=== PATIENT | male | born 1935 | race Caucasian/White ===

== ENCOUNTER 2016-08-04 00:34 | Inpatient (IN) | payer MEDICARE, BC ==
[~2016-08-04] VITALS: Ht 167.6 cm; Wt 76.4 kg
[~2016-08-04 00:34] MED LIST: ARANESP300 MCG/0. SQ; DURAGESIC1 PATCH .7 TD; FERROUS SULFAT325 MG PO; JANUVIA100 MG PO; KLONOPIN1 MG PO; LANTUS INSULIN10 ML SC; LASIX40 MG PO; MELATONIN 3 MG1 TAB PO; NEURONTIN 300300 MG PO; NORCO 5/325 TAB1 TA1 PO; PEPCID20 MG; PEPCID20 MG PO; PLAVIX75 MG PO; PREVACID SOLUTA30 MG PO; SINEMET 25/1001 TAB PO; TRANDATE200 MG; TRANDATE200 MG PO; TRANDATE300 MG; TRICOR145 MG PO; VICODIN PO
[2016-08-04 03:47] VITALS: BP 129/57; BMI 34.7
--- NOTE | 2016-08-04 03:50 | NUR ---
ALERT/ORIENTED X 4. C/O RIGHT LEG FRACTURE PAIN LEVEL 8/10 SCALE. RIGHT LEG DRESSING REMOVED REVEALING COMPOUND FRACTURE WITH TIBIA STICKING THROUGH THE SKIN ABOVE ANKLE. WOUND REWRAPPED BY TRISTIAN ANTON LPN. IV IN RIGHT AC NOTED. FISTULA IN LEFT UPPER ARM WITH STRONG BRUIT AND THRILL. ORIENTED TO ROOM AND CALL LIGHT. HIS AND SON ARE PRESENT IN ROOM.
[2016-08-04] MEDS ORDERED: DURAGESIC1 PATCH .4 TRANSDERM (04:07)
[2016-08-04] MEDS ORDERED: JANUVIA100 MG PO (04:09)
[2016-08-04] MEDS ORDERED: NORMODYNE / TR200 MG PO (04:09)
[2016-08-04] MEDS ORDERED: RENVELA800 MG PO (04:10)
[2016-08-04] MEDS ORDERED: LANTUS SOL100 UNIT/1 SC (04:11)
[2016-08-04] MEDS ORDERED: LYRICA150 MG PO (04:12)
[2016-08-04] MEDS ORDERED: CELEXA20 MG PO (04:13)
[2016-08-04 04:30] VITALS: BP 106/50
[2016-08-04 05:13] LABS: HEMATOCRIT 36.7 % (42.0-54.0); HEMOGLOBIN 11.6 g/dL (13.5-17.5); MCH 31.2 pg (26.0-34.0); MCHC 31.6 g/dL (31.0-37.0); MCV 98.7 fL (80.0-100.0); MEAN PLATELET VOLUME 11.3 fL (7.4-10.4); PLATELET COUNT 265 10x3/uL (130-400); RBC 3.72 10x6/uL (4.20-6.10); RDW 15.8 % (11.5-14.5); WBC 20.6 10x3/uL (4.8-10.8)
[2016-08-04 05:19] LABS: EOSINOPHILS 3 % (0-7); LYMPHOCYTES 18 % (15-50); MONOCYTES 5 % (2-11); NEUTROPHILS 69 % (40-80); PLATELET ESTIMATE NORMAL
[2016-08-04 05:39] LABS: CALCIUM 7.7 mg/dL (8.5-10.1); CARBON DIOXIDE 24.7 mmol/L (21.0-32.0); CREATININE - SERUM 5.7 mg/dL (0.6-1.3); POTASSIUM - SERUM 3.7 mmol/L (3.5-5.1)
--- NOTE | 2016-08-04 06:22 | NUR ---
PT RECIEVED FROM EMS. ALERT ORIENTED CONVERSANT. DENIED PAIN ON ADMISSION. PRESENTED WITH RIGHT FOOT BANDAGED, DRESSINGS SATURATED WITH BLOOD. BANDAGES REMOVED AND WOUND INSPECTED. PT RIGHT FOOT FOUND TO BE ROTATED LATERALY AWAY FROM MIDLINE WITH A PRONOUNCED SAG. OPEN WOUND PRESENT APPROX OVER MEDIAL MALLEOLUS. WHITE TISSUE SHOWING. UNABLE TO PALPATE PULSE, COLD TO TOUCH. INQUIRED IF PT COULD FEEL STIMULUS APPLIED TO FOOT. PT STATED THAT HE COULD BARELY FEEL ANYTHING. ASKED PT TO RAISE LEG DURING BANDAGING PROCCESS. PT COMPLIED AND SHOWED NO SIGNS OF PAIN OR DISCOMFORT. WOUND WAS CLENSED WITH WOUND CLENSER, ABD PAD PLACED OVER WOUND, PAD SECURED WITH COTTON WRAP, OSKAR VELCRO WRAP USED TO SECURE ALL BANDAGES. EXTREMITY ELEVATED ON PILLOWS, ICE PLACED NEXT TO WOUND, NOT ON. PT NON WEIGHT BEARING STATUS.
[2016-08-04 09:00] VITALS: BP 115/51
--- NOTE | 2016-08-04 09:38 | NUR ---
WHEN GOT HERE THIS AM ABOUT 8 AM, RALPH WAS ORIGINAL PT NURSE AND WAS SENT TO [facility]. I ASSUMED CARE OF PT. SAW THAT DR SALINAS HAD BEEN CONSULTED FOR OPEN ANKLE FX AND THAT IN THE ORDER IT SAID "CALL IN THE AM". VY CALLED AT ABOUT 0820. DR SALINAS IS ON HIS WAY.
--- NOTE | 2016-08-04 09:50 | NUR ---
DR SALINAS HERE WANTS PT TO OR NOW. CALLED [place] [facility] HE IS CALLING OR STAFF.
[2016-08-04 10:09] LABS: MAGNESIUM - SERUM 2.1 mg/dL (1.8-2.4); VANCOMYCIN - RANDOM 32.4 ug/mL (10.0-20.0)
--- NOTE | 2016-08-04 10:43 | NUR ---
UNABLE TO COMPLETE PREOP CHECKLIST. SAYS UNAVAILBLE PROCEDURES.? PT TO SURGERY.
--- NOTE | 2016-08-04 11:31 | NUR ---
1100 PATIENT HAS MULTIPLE SCRATCHES AND ULCERS ON LEGS AND ARM, ELIDIAREULALIO
[2016-08-04 12:48] VITALS: BP 109/53
--- NOTE | 2016-08-04 13:07 | NUR ---
MEPELEX BORDER APPLIED TO LEFT HEEL. SIGNED AND DATED. UNABLE TO APPLY TO R HEEL BECAUSE OF LARGE BULKY DRESSING FROM SURGERY.
--- NOTE | 2016-08-04 13:50 | NUR ---
PAGED DR SALINAS ABOUT PT BEING IN PAIN. NOT TIME FOR PT TO HAVE PAIN MEDS.
--- NOTE | 2016-08-04 14:56 | NUR ---
PT VS STILL WNL. PT SITTING UP IN BED WITH FAMILY AT BEDSIDE.
[2016-08-04 17:14] VITALS: BP 128/59
--- NOTE | 2016-08-04 17:32 | NUR ---
PT SITTING UP IN BED WITH FAMILY AT BEDSIDE DENIES NEEDS AT THIS TIME WILL CONTINUE TO MONITOR.
--- NOTE | 2016-08-04 20:03 | NUR ---
PT ASSESSMENT AND BEDSIDE ROUNDING COMPLETED AND PT LAYING IN BED EYES CLOSED APPERS TO BE SLEEPING IN ROOM AT BEDSIDE RIGHT ANKLE DRESSING INTACT AND NO DRAINAGE OBSERVED IVP TO R AC WITH 1/2 NS INFUSING ORDERED AND NO DISTRESS OBSERVED AT THIS TIME. IN ROOM AT BEDSIDE CALL LIGHT IN REACH SRX2 BED LOW AND LOCKED WILL MONITOR
[2016-08-04 21:13] VITALS: BP 131/63
[2016-08-05] VITALS (8 sets, daily range): BP systolic 127–136; BP diastolic 53–58; Ht 167.6 cm; Wt 76.4 kg
[2016-08-05 06:23] LABS: BASOPHILS 0.5 % (0.0-2.0); EOSINOPHILS 2.1 % (0-7); HEMATOCRIT 33.2 % (42.0-54.0); HEMOGLOBIN 10.5 g/dL (13.5-17.5); IMMATURE GRANULOCYTES 1.8 % (0-5); LYMPHOCYTES 11.4 % (15-50); MCH 31.4 pg (26.0-34.0); MCHC 31.6 g/dL (31.0-37.0); MCV 99.4 fL (80.0-100.0); MEAN PLATELET VOLUME 11.2 fL (7.4-10.4); MONOCYTES 6.6 % (2-11); NEUTROPHILS 77.6 % (40-80); PLATELET COUNT 237 10x3/uL (130-400); RBC 3.34 10x6/uL (4.20-6.10); RDW 15.8 % (11.5-14.5); WBC 17.1 10x3/uL (4.8-10.8)
[2016-08-05 06:32] LABS: ANION GAP 20.5 mmol/L (8-16); CALCIUM 7.5 mg/dL (8.5-10.1); CARBON DIOXIDE 23.2 mmol/L (21.0-32.0); CREATININE - SERUM 7.4 mg/dL (0.6-1.3); MAGNESIUM - SERUM 2.1 mg/dL (1.8-2.4); PHOSPHOROUS 9.5 mg/dL (2.5-4.9); POTASSIUM - SERUM 3.7 mmol/L (3.5-5.1)
--- NOTE | 2016-08-05 09:08 | NUR ---
SCD IN USE
--- NOTE | 2016-08-05 12:00 | NUR ---
RESTING IN BED. UNSUCCESSFUL GETTING TO CHAIR ASSISTED BY PHYSICAL THERAPY. FAMILY AT BEDSIDE. CONTINUE PAIN MANAGEMENT. RT ANKLE DRESSING CLEAN DRY INTACT. DENIES SOB. BED LOCKED AND LOW. SCD ON LT LEG. CALL LIGHT IN REACH. TWO SIDERAILS UP.
--- NOTE | 2016-08-05 16:53 | NUR ---
Patient Name: CHAPARRO BURT Admission Status: Elective Accout number: [id number] Admission Date: 08-04-2016 : 1935 Admission Diagnosis: Attending: VERONICA Current LOS: 1 Anticipated DC Date: Planned Disposition: Home Health Service Primary Insurance: MEDICARE A & B PLANNED EXTERNAL PROVIDER: [facility], Discharge Planning Comments: * Is the patient Alert and Oriented? Yes 0 * How many steps to enter\exit or inside your home? RAMP 0 * PCP DR. JIANG IN [place] 0 * Pharmacy [facility] IN [place] 0 * Preadmission Environment Home with Family 0 * ADLs Independent 0 * Equipment Walker Wheelchair 0 * Other Equipment NO MEDICAL EQUIPMENT PROVIDER PREFERENCE 0 * List name and contact numbers for known caregivers / representatives who currently or will assist patient after discharge: IMELDA BURT, SPOUSE, WERNER BURT, SON, 0 * Community resources currently utilized None 0 * Please name any agencies selected above. NONE 0 * Additional services required to return to the preadmission environment? No 0 * Can the patient safely return to the preadmission environment? Yes 0 * Has this patient been hospitalized within the prior 30 days at any hospital? No 0 CM MET WITH PT ALONG WITH PT'S SPOUSE AND SON IN ROOM TO DISCUSS DISCHARGE PLANNING AND NEEDS. PT REPORTS LIVING AT HOME INDEPENDENTLY WITH HIS SPOUSE; PT'S SON WILL BE STAYING WITH THEM TO ASSIST PT AFTER DISCHARGE HOME. PT HAS WALKER AND WHEELCHAIR AT HOME WITH NO MEDICAL EQUIPMENT PROVIDER PREFERENCE. PT HAS NO OUTSIDE SERVICES ASSISTING IN THE HOME. CM DISCUSSED AVAILABILITY OF HOME HEALTH, REHAB SERVICES AND MEDICAL EQUIPMENT. PT DENIES NEED FOR REHAB PLACEMENT. PT REPORTS PLAN TO DISCHARGE HOME AND WANTS HOME HEALTH FOR THERAPY SERVICES BY [facility]. PT REPORTS ATTENDING DIALYSIS ON SCHEDULE AT 0900, SON TRANSPORTS. PT'S SON REPORTS HE WILL CONTACT TRANSPORATION SERVICES IN [place] TO SEE IF THEY CAN GET A LIFT VAN TO PRODUCTION MECHANIC TIN CANS PT TO TRANSPORT TO AND FROM DIALYSIS APPOINTMENTS. PT REPORTS HIS AND SON WILL PICK HIM UP FOR DISCHARGE HOME. IMPORTANT MESSAGE FROM MEDICARE PROVIDED AND EXPLAINED. PT PLANS TO DISCHARGE HOME WITH FAMILY ASSISTANCE AND WANTS HOME HEALTH FOR PHYSICAL THERAPY SERVICES FROM [facility]. CM WILL ARRANGE WITH PHYSICIAN AGREEMENT AND ORDERS. Scrap Wheeler: Yvan Lopez
--- NOTE | 2016-08-05 17:58 | NUR ---
RESTING IN BED. ALERT AND ORIENTED X4. NO CHANGE. CONTINUE PLAN OF CARE AND SAFETY PRECAUTIONS.
--- NOTE | 2016-08-06 00:54 | NUR ---
PT ROUNDS 19:00 - PT LYING IN BED, AWAKE, ALERT, ORIENTED, DENIED ANY ACUTE NEEDS. CONTINUE TO MONITOR CLOSELY. RIGHT LEG WRAPPED, DRESSING INTACT, PT IS AWARE HE CANNOT PLACE ANY WEIGHT ON HIS RIGHT FOOT AT ANY TIME.
--- NOTE | 2016-08-06 05:22 | NUR ---
PT LYING IN BED, AWAKE, ALERT, ORIENTED, SON AT BEDSIDE. PT STATES HE VOMITING AFTER RECEIVING HIS BEDTIME MEDICATIONS, POSSIBLY R/T THE IVP BUPRONEX, BUT FEELS FINE NOW, AND DENIES GREAT PAIN AT THIS TIME. CONTINUE TO MONITOR CLOSELY.
[2016-08-06 05:35] VITALS: BP 107/49
--- NOTE | 2016-08-06 06:03 | NUR ---
PT STATES HE BECOMES NAUSEATED WITH BUPRENEX BUT THERE IS NOTHING ELSE ORDERED FOR PAIN AT THIS TIME. WILL DISCUSS WITH DAY SHIFT NURSE. ZOFRAN GIVEN PRIOR TO BUPRENEX ADMINSTRATION. PT DENIES NAUSEA AT THIS TIME. CONTINUE TO MONITOR CLOSELY.
[2016-08-06 06:32] LABS: BASOPHILS 0.4 % (0.0-2.0); HEMOGLOBIN 9.4 g/dL (13.5-17.5); IMMATURE GRANULOCYTES 1.2 % (0-5); LYMPHOCYTES 10.1 % (15-50); MCH 30.8 pg (26.0-34.0); MCHC 31.3 g/dL (31.0-37.0); MCV 98.4 fL (80.0-100.0); MEAN PLATELET VOLUME 11.1 fL (7.4-10.4); NEUTROPHILS 80.3 % (40-80); PLATELET COUNT 216 10x3/uL (130-400); RBC 3.05 10x6/uL (4.20-6.10); WBC 14.2 10x3/uL (4.8-10.8)
--- NOTE | 2016-08-06 07:00 | NUR ---
RECEIVED REPORT. ASSUMED CARE OF PATIENT. CALL LIGHT WITH IN REACH. PATIENT ALERT/ORIENTED. MALE VISITOR AT BEDSIDE. DENIES NEEDS AT THIS TIME. AT BEDSIDE FOR AM ROUNDS. NO ACUTE DISTRESS.
[2016-08-06 07:02] LABS: ANION GAP 18.4 mmol/L (8-16); CARBON DIOXIDE 23.4 mmol/L (21.0-32.0); MAGNESIUM - SERUM 2.1 mg/dL (1.8-2.4); POTASSIUM - SERUM 3.8 mmol/L (3.5-5.1); VANCOMYCIN - TROUGH 30.3 ug/mL (10.0-20.0)
[2016-08-06 07:04] LABS: PHOSPHOROUS 9.9 mg/dL (2.5-4.9)
[2016-08-06 07:25] VITALS: BP 104/38
[2016-08-06 11:21] VITALS: BP 126/53
--- NOTE | 2016-08-06 11:40 | NUR ---
FSBS 206. 4 UNITS HUMALOG ADMINISTERED VIA SLIDING SCALE AT THIS TIME. NO DISTRESS.
[2016-08-06 12:00] VITALS: BP 126/53
--- NOTE | 2016-08-06 14:22 | NUR ---
MEDICATED FOR PAIN AT THIS TIME. NO DISTRES.
--- NOTE | 2016-08-06 15:14 | NUR ---
Patient Name: CHAPARRO BURT Encounter No: [id number] : 1935 Primary Insurance: MEDICARE A & B Anticipated DC Date: Planned Disposition: Retirement Facility External Planned Provider: [facility], [place], MEDICARE REH BED DCP follow-up note: CM MET WITH PT AND FAMILY IN ROOM. PT HAS DECIDED TO GO TO REHAB AT [facility] IN [place]. FAMILY HAS CONTACTED THE ADMINSTRATOR OF THE FACILITY WITH REQUEST. CHOICE LETTER SIGNED. CM CALLED [facility], [address] [place] [address]; [phone], SPOKE TO GEOVANNI WHO REPORTS THE FACILITY WILL EVALUATE PT FOR REHAB SERVICES. CM FAXED REFERRAL TO [facility] AT [phone]. CM WAITING ADMISSION DETERMINATION FROM [facility] IN [place]. Yvan Lopez, CASE MANAGEMENT
[2016-08-06 15:33] VITALS: BP 119/47
--- NOTE | 2016-08-06 17:11 | NUR ---
FSBS 200. 2 UNITS HUMALOG ADMINISTERED PER SLIDING SCALE.
[2016-08-06 22:28] VITALS: BP 115/55
[2016-08-07 00:59] VITALS: BP 121/58
--- NOTE | 2016-08-07 03:42 | NUR ---
NURSE ROUNDS 19:30 - PT AWAKE, ALERT, ORIENTED, AT BEDSIDE. PT DENIES ANY NEEDS. CALL LIGHT IN REACH, SIDE RAILS X 2, HOB 15 DEGREES, BED LOW. CONTINUE TO MONITOR CLOSELY.
[2016-08-07 05:21] VITALS: BP 129/53
[2016-08-07 06:17] LABS: BASOPHILS 0.4 % (0.0-2.0); HEMATOCRIT 30.8 % (42.0-54.0); HEMOGLOBIN 9.6 g/dL (13.5-17.5); IMMATURE GRANULOCYTES 0.9 % (0-5); MCH 30.8 pg (26.0-34.0); MCHC 31.2 g/dL (31.0-37.0); MCV 98.7 fL (80.0-100.0); MONOCYTES 6.6 % (2-11); NEUTROPHILS 82.1 % (40-80); PLATELET COUNT 220 10x3/uL (130-400); RBC 3.12 10x6/uL (4.20-6.10); RDW 16.1 % (11.5-14.5); WBC 12.9 10x3/uL (4.8-10.8)
[2016-08-07 07:07] LABS: ANION GAP 21.5 mmol/L (8-16); CARBON DIOXIDE 20.9 mmol/L (21.0-32.0); CREATININE - SERUM 10.6 mg/dL (0.6-1.3)
[2016-08-07 07:11] LABS: PHOSPHOROUS 9.4 mg/dL (2.5-4.9); POTASSIUM - SERUM 4.4 mmol/L (3.5-5.1)
[2016-08-07 08:00] VITALS: BP 118/85
--- NOTE | 2016-08-07 10:00 | NUR ---
Lying in bed, awake easily, spouse at bedside, incontinent of stool, cleansed up and positioned in bed. Left arm reserved. Dressing clean dry and intact to right lower leg, toes warm and pink, able to move toes. Verbalized understanding of no weight bearing to that leg. No distress assessed.
[2016-08-07 12:00] VITALS: BP 113/58
--- NOTE | 2016-08-07 12:56 | NUR ---
[facility] - [facility] @ 6:45am. Medical records have been forwarded to the patient's home unit for their records. Per CM patient is scheduled to d/c to [place] tomorrow (08/08/16). EDIN PRL
--- NOTE | 2016-08-07 15:04 | NUR ---
TO DIALYSIS VIA BED.
--- NOTE | 2016-08-07 19:20 | NUR ---
Mr. Kuhn had hemodialysi today via his left upper arm av fistula from 1515 until 1815. Average blood flow was 400 mls/minute. Pt. was hypotensive and lethargic during treatment. Net fluid removed was 1500 mls. Post vital signs were good after awakening. B/P: 131/69, HR: 82, Temp: 98.4 Resps: 20.
--- NOTE | 2016-08-07 19:50 | NUR ---
PT BACK FROM DIALYSIS, AWAKE, ALERT, ORIENTED, SITTING UP IN BED, EATING HIS DINNER TRAY. DENIES ANY NEEDS. SON AT BEDSIDE. CONTINUE TO MONITOR CLOSELY.
[2016-08-07 20:26] VITALS: BP 136/65
--- NOTE | 2016-08-07 23:15 | NUR ---
PT'S PAIN IN RIGHT LEG IS NOT WELL CONTROLLED WITH NORCO 5/325. I SPOKE WITH KALEY MACARIO HAND WEAVER FOR RENAL WHO AUTHORIZED TO RESTART PTS BUPRENEX 0.1MG IVP Q 4 HOURS PRN. CONTINUE TO MONITOR CLOSELY.
[2016-08-08 00:38] VITALS: BP 125/49
[2016-08-08 04:40] VITALS: BP 104/55
[2016-08-08 05:48] LABS: BASOPHILS 0.3 % (0.0-2.0); EOSINOPHILS 2.3 % (0-7); HEMATOCRIT 29.1 % (42.0-54.0); HEMOGLOBIN 9.1 g/dL (13.5-17.5); IMMATURE GRANULOCYTES 0.8 % (0-5); LYMPHOCYTES 10.3 % (15-50); MCH 30.8 pg (26.0-34.0); MCHC 31.3 g/dL (31.0-37.0); MCV 98.6 fL (80.0-100.0); NEUTROPHILS 77.3 % (40-80); PLATELET COUNT 210 10x3/uL (130-400); RBC 2.95 10x6/uL (4.20-6.10); RDW 15.8 % (11.5-14.5); WBC 11.9 10x3/uL (4.8-10.8)
[2016-08-08 06:26] LABS: CALCIUM 7.6 mg/dL (8.5-10.1); VANCOMYCIN - RANDOM 27.2 ug/mL (10.0-20.0)
[2016-08-08 06:34] LABS: ANION GAP 16.2 mmol/L (8-16); CARBON DIOXIDE 27.2 mmol/L (21.0-32.0); CREATININE - SERUM 7.2 mg/dL (0.6-1.3); PHOSPHOROUS 6.2 mg/dL (2.5-4.9); POTASSIUM - SERUM 3.4 mmol/L (3.5-5.1)
[2016-08-08 08:00] VITALS: BP 122/53
--- NOTE | 2016-08-08 08:04 | NUR ---
AM ROUNING- PT LAYING IN BED ON BACK WITH EYES OPEN WATCHING TV. SON AT BEDSIDE. DENIES ANY NEED AT THIS PRESENT TIME. PT IS ALERT AND ORIENTED. FSBS ACHS. PT IS RESERVE LEFT ARM FOR AVF. PT NORMAL DIALYSIS SCHEDULE IS , , AND SAT. PT DID DIALYZE YESTERDAY VIA TOLL PATROLMAN NURSE. PT HAS DRESSING TO RIGHT LEG CLEAN, DRY, AND INTACT FOR COMPOUND ANKLE FRACTURE. IV SEEN TO RIGHT AC SALINE LOCKED AND PATENT. ON 2L OF VIA MN. NO MONITOR. SCD SEEN TO LEFT LEG. PT IS ON ELIQUIS. WILL CONTINUE TO MONITOR.
--- NOTE | 2016-08-08 09:23 | OP ---
PATIENT NAME: CHAPARRO BURT MEDICAL RECORD: [id number] :[birth year] LOCATION:D.M2 D.2103 ADMISSION DATE:08/04/16 SURGEON: MARIE SALINAS MD DATE OF OPERATION: 08/04/2016 PREOPERATIVE DIAGNOSIS: Grade II open ankle fracture. POSTOPERATIVE DIAGNOSIS: Grade II open ankle fracture. PROCEDURES: 1. Excisional debridement of open wound to include skin, subcutaneous tissue, portions of fat, fascia, muscle, tendon and bone. 2. Open reduction internal fixation of open ankle fracture. 3. Deltoid ligament reconstruction of the ankle. SURGEON: Marie Salinas MD ANESTHESIA: General. INTRAOPERATIVE COMPLICATIONS: None. SUMMARY OF PATHOLOGIC FINDINGS: The patient had an open ankle fracture as described above. Based on history that was given to me, this patient sustained a fall on the 2015 and had an open ankle fracture at that time. The patient was then transferred from the [facility] to [place] and evidently arrives the morning of 08/04/2016. Orthopedic surgery was not called for consultation until 08:11 a.m. He was then taken urgently to the OR for operative fixation. OPERATIVE SUMMARY IN DETAIL: After obtaining the appropriate preoperative orthopedic surgery consents as well as anesthetic consultation, evaluation and clearance, the patient was brought to the operating room and placed in the operating table in supine position. After adequate general endotracheal anesthesia was administered, tourniquet was placed about the proximal aspect of the right lower extremity. Right lower extremity was then prepped and draped in a routine sterile fashion. Leg was elevated, tourniquet was inflated to 350 mmHg. Attention was first turned to the open wound. Serial and sequential pulsatile lavage debridement was carried out along with a scalpel debridement of loose bone fragments. The patient had subluxed the posterior tibial tendon into the joint. This was gently removed and all bone fragments along with nonviable appearing skin, subcutaneous tissue, fat, fascia as well as bone removed. Without closing this wound, attention was turned to the displaced lateral malleolus fracture. Incision was made along the lateral malleolus. It was carried down to the level of the fracture, which was dissected and upon identification and evaluation of the fracture, it became obvious that this fracture was old with a new component. There was fracture healing components along with a new fracture. This was all dissected down. Curettage was used extensively to remove interposed soft tissue. At this point, a large clamp was then used to reduce the Thomas C type fracture and plate was then applied. Serial and sequential drill and fill was utilized along with 3 syndesmosis screws which closed the medial clear space down to approximately 2 mm from completely dislocated laterally. With this wound still open, the medial clear space was evaluated again. The deltoid soft tissue along with the posterior tibial tendon was removed and at this point, the medial deltoid ligament was reconstructed the joint capsule along with the distal medial deltoid ligament OPERATIVE REPORT [id number] CHAPARRO BURT was reapproximated back to the medial malleolus with its torn deltoid ligament. This further reduced the medial clear space, albeit not back to anatomic as far as this patient is old with acute fracture would allow. Wound was again irrigated and then closed. The deltoid ligament was reconstructed with a combination of #1 Vicryl and 2-0 Vicryl. The skin was then closed with #2 Ethibond somewhat loosely given the fact that this patient's ankle had been opened now for almost 24 hours. The medial based incision was then irrigated and closed with #1 Vicryl followed by skin meir. Sterile dressings were applied. The tourniquet was deflated and a posterior L&U splint was applied with varus vector on the posterior splint. Having completed this, the patient was awakened, extubated, and taken to recovery room in stable condition. All final needle and sponge counts were correct. TRANSINT:[id number] Voice Confirmation ID: [id number] DOCUMENT ID: [id number] RITA SINGLETARY, MARIE MACHUCA at 0923 CC: [id number] DICTATION DATE: 08/04/16 1216 RESEARCH PROGRAM COORDINATOR: 08/04/16 1409 ADM IN [facility] [address] [place] [address]
--- NOTE | 2016-08-08 10:34 | NUR ---
PHYSICAL THERAPY GOT PT UP TO CHAIR.
[2016-08-08 12:00] VITALS: BP 125/54
--- NOTE | 2016-08-08 15:46 | NUR ---
Patient Name: CHAPARRO BURT Encounter No: [id number] : 1935 Primary Insurance: MEDICARE A & B Anticipated DC Date: 08-09-2016 Planned Disposition: Nursing Home Facility External Planned Provider: [facility], MEDICARE REHAB BED DCP follow-up note: CM RECEIVED CALL FROM GEOVANNI OF [facility], [address] [place] [address]; [phone], WHO REPORTS [facility] WILL ACCEPT FOR REHAB SERVICES. [facility] TO ARRANGE VAN TRANSPORT FOR TOMORROW. CM SPOKE TO PT AND FAMILY IN ROOM, ALL STILL IN AGREEMENT WITH DISCHARGE TO [facility]. IMPORTANT MESSAGE FROM MEDICARE PROVIDED AND EXPLAINED. FOR DISCHARGE, NURSE REPORT TO BE CALLED TO [facility], ; CM TO FAX DC INFORMATION TO [facility] AT [phone]. [facility] TO ARRANGE VAN TRANSPORT. Yvan Lopez, CASE MANAGEMENT
[2016-08-08 16:00] VITALS: BP 132/49
--- NOTE | 2016-08-08 16:08 | NUR ---
Patient Name: CHAPARRO BURT Encounter No: [id number] : 1935 Primary Insurance: MEDICARE A & B Anticipated DC Date: 08-09-2016 Planned Disposition: [facility] Facility External Planned Provider: [facility], MEDICARE REHAB BED DCP follow-up note: CM RECEIVED CALL FROM GEOVANNI OF [facility], [address] [place] [address]; [phone], WHO REPORTS [facility] WILL GRAVEL TRUCK DRIVER PT BETWEEN 1100AM AND NOON TOMORROW. PT AND FAMILY NOTIFIED, BEDSIDE NURSE NOTIFIED, STUMPER FELLER NOTIFIED. FOR DISCHARGE, NURSE REPORT TO BE CALLED TO [facility], ; CM TO FAX DC INFORMATION TO [facility] AT [phone]. [facility] TO PICK PT UP 08-09-16, VAN TRANSPORT, BETWEEN 1130 AND NOON. Yvan Lopez, CASE MANAGEMENT
--- NOTE | 2016-08-08 17:06 | NUR ---
SPLINT REMOVED PER DR. SALINAS'S ORDERS. WEBRIL AND ADAPTIC DRESSING REMOVED ALSO TO INCISION. OUTER LATERAL ZAHRA CLEAN AND DRY . SMALL AMOUNT OF SEROUS DRAINAGE. ADAPTIC X2 APPLIED. INNER LATERAL SUTURES CLEAN AND DRY WITH GRANULOUS TISSUE. ADAPTIC X1 APPLIED. SKIN IS PINK AND SCALY. FOOT IS WARM. CAPILLARY REFILL < 3 SECS. MICROPORE TAPE APPLIED. PATIENT MATTHEW WELL. BOOT APPLIED.
--- NOTE | 2016-08-08 18:22 | NUR ---
PT SITTING UP IN BED WITH EYES CLOSED. FAMILY MEMBERS AT BEDSIDE. DENIES ANY NEED AT THIS TIME. WILL CONTINUE TO MONITOR.
[2016-08-08 20:34] VITALS: BP 115/58
[2016-08-09] VITALS: BP 122/49
[2016-08-09 05:17] LABS: BASOPHILS 0.6 % (0.0-2.0); EOSINOPHILS 2.9 % (0-7); IMMATURE GRANULOCYTES 0.7 % (0-5); LYMPHOCYTES 11.4 % (15-50); MCH 31.4 pg (26.0-34.0); MCHC 32.1 g/dL (31.0-37.0); MCV 97.6 fL (80.0-100.0); MEAN PLATELET VOLUME 10.8 fL (7.4-10.4); MONOCYTES 10.4 % (2-11); PLATELET COUNT 231 10x3/uL (130-400); RBC 2.87 10x6/uL (4.20-6.10); RDW 15.8 % (11.5-14.5); WBC 10.9 10x3/uL (4.8-10.8)
--- NOTE | 2016-08-09 05:29 | NUR ---
CALL LIGHT IN REACH. WILL CONTINUE WITH PLAN OF CARE.
[2016-08-09 05:41] LABS: ANION GAP 17.3 mmol/L (8-16); CALCIUM 7.5 mg/dL (8.5-10.1); CARBON DIOXIDE 26.2 mmol/L (21.0-32.0); CREATININE - SERUM 8.6 mg/dL (0.6-1.3); PHOSPHOROUS 6.9 mg/dL (2.5-4.9); POTASSIUM - SERUM 3.5 mmol/L (3.5-5.1)
--- NOTE | 2016-08-09 06:28 | NUR ---
Nutrition follow-up: Diet: Renal PO intake 75-100% of meals labs reviewed Wt: 214# +BM PO intake is good at this time. RDN following.
--- NOTE | 2016-08-09 07:34 | NUR ---
AM ROUNDING- PT SITTING UP IN BED WITH EYES CLOSED RESTING. FAMILY MEMBERS AT BEDSIDE. PT IS CURRENTLY AWAITING TO BE D/C TO REHAB FACILITY. LEFT RESERVE ARM FOR AVF, + BRUIT, + THRILL. IV SEEN TO RIGHT AC, SALINE LOCKED AND PATENT. ON VIA NC. WALKING BOOT SEEN TO RIGHT LEG. SCD SEEN TO LEFT LEG. NO MONITOR. NO CURRENT NEED AT THIS TIME. WILL CONTINUE TO MONITOR.
--- NOTE | 2016-08-09 08:47 | NUR ---
Patient Name: CHAPARRO BURT Encounter No: [id number] : 1935 Primary Insurance: MEDICARE A & B Anticipated DC Date: 08-09-2016 Planned Disposition: Senior Living Facility External Planned Provider: [facility], MEDICARE REHAB BED DCP follow-up note: CM CALLED AND SPOKE TO MEDICATION SPECIALIST, MR. HINOJOSA, [facility], [address] [place] [address]; [phone], WHO REPORTS THAT DUE TO ROAD CONDITIONS THEY ARE UNABLE TO BIAS BINDING CUTTER PT TODAY OR TOMORROW; [facility] WILL BIAS BINDING CUTTER PT 08-11-16. PT NOTIFIED, SHOVEL HANDLE ASSEMBLER NOTIFIED. FOR DISCHARGE 08-11-16, NURSE REPORT TO BE CALLED TO [facility], ; CM TO FAX DC INFORMATION TO [facility] AT [phone]. [facility] TO PICK PT UP 08-11-16, VAN TRANSPORT. Yvan Lopez, CASE MANAGEMENT
[2016-08-09 09:01] VITALS: BP 150/673
[2016-08-09] MEDS ORDERED: ELIQUIS2.5 MG PO (11:42)
[2016-08-09] MEDS ORDERED: MIDODRINE HCL5 MG PO (11:43)
[2016-08-09] MEDS ORDERED: HYDROCODON-ACE1 EAC7 PO (11:44)
[2016-08-09] MEDS ORDERED: PROTONIX40 MG PO (11:44)
[2016-08-09] MEDS ORDERED: NOVOLIN N100 U/ML SQ (11:45)
--- NOTE | 2016-08-09 12:30 | NUR ---
Patient Name: CHAPARRO BURT Encounter No: [id number] : 1935 Primary Insurance: MEDICARE A & B Anticipated DC Date: 08-09-2016 Planned Disposition: Custodial Facility External Planned Provider: [facility], MEDICARE REHAB BED DCP follow-up note: CM SPOKE TO CM SHINGLE INSPECTOR TRACY WHO ASKED CM TO CHECK WITH AMBULANCE TO TRANSPORT PT TO ALF. CM CALLED [facility], SPOKE TO YVAN WHO REPORTED THEY CAN TRANSPORT PT. CM SPOKE TO GEOVANNI AT [facility] WHO REPORTED THAT THEY CAN ACCEPT IF AMBUANCE CAN TRANSPORT AND IT WOULD BE FRIDAY IF THEY HAVE TO TRANSPORT. FAMILY NOTIFIED AND WILLING FOR DISCHARGE IF AMBULANCE CAN TRANSPORT. CM RECEIVED CALL FROM [facility] [employer], MR. HINOJOSA, [facility], [address] [place] [address], [place], [place]; [phone], WHO REPORTS THAT DUE TO ROAD CONDITIONS THEY ARE UNABLE TO LOW EMISSION AUTOMOBILE DESIGNER PT UNTIL FRIDAY AND WILL NOT ACCEPT BEFORE THEN THE ROADS ARE UNSAFE AND THEY WILL NOT BE ABLE TO SAFELY TRANSPORT PT TO DIALYSIS UNTIL AFTER FRIDAY; [facility] WILL LOW EMISSION AUTOMOBILE DESIGNER PT 08-11-16. PT'S FAMILY NOTIFIED, PHOTO RETOUCHER NOTIFIED. CM CANCELLED [facility] TRANSPORT. FOR DISCHARGE 08-11-16, NURSE REPORT TO BE CALLED TO [facility], ; CM TO FAX DC INFORMATION TO [facility] AT [phone]. [facility] TO PICK PT UP 08-11-16, [facility] TRANSPORT. Yvan Lopez, CASE MANAGEMENT
--- NOTE | 2016-08-09 14:37 | NUR ---
HEMODIALYSIS COMPLETE, NET FLUID REMOVAL OF 3 LITERS, TOLERATED WELL. BLOOD RETURNED, NEEDLES PULLED, HEMOSTASIS WAS ACHEIVED. PATIENT TAKEN BACK TO ROOM VIA BED. REPORT GIVEN TO FLOOR NURSE.
--- NOTE | 2016-08-09 15:02 | NUR ---
PT BACK FROM DIALYSIS VIA BED.
[2016-08-09 16:43] VITALS: BP 140/63
--- NOTE | 2016-08-09 17:21 | NUR ---
I WAS GIVING PTS PRN ORDER OF ZOFRAN, PTS IV WOULD NOT FLUSH. IV REMOVED WITH CATH TIP INTACT. PAGED [facility] TO SEE IF I CAN GET ORDER FOR SUBLINGUAL ZOFRAN FOR PT UNTIL I CAN RESITE PTS IV. AWAITING CALLBACK.
--- NOTE | 2016-08-09 17:30 | NUR ---
RECEIVED CALL BACK FROM [facility]. NEW ORDERS RECEIVED.
--- NOTE | 2016-08-09 18:42 | NUR ---
PT SITTING UP IN BED WITH EYES CLOSED SLEEPING. FAMILY MEMBERS AT BEDSIDE. DENIES ANY NEED AT THIS TIME. WILL CONTINUE TO MONITOR.
[2016-08-09 21:00] VITALS: BP 107/56
--- NOTE | 2016-08-09 21:00 | NUR ---
RESTING IN BED WATCHING TV. ALERT ORIENTED CONVERSANT. FAMILY AT BEDSIDE. DENIES NEEDS. NO ACUTE DISTRESS NOTED
[2016-08-10 00:42] VITALS: BP 122/41
--- NOTE | 2016-08-10 04:47 | NUR ---
INFORMED THAT PT WAS NOT RESPONDING TO VERBAL STIMULI. ENTERED ROOM TO FIND NURSING STAFF PRESENT. PT HAD VOMITED. SITTING UP IN BED, STARING RANDOMLY. FOCUSED BREIFLY WHEN PROMPTED. NG TUBE PLACEMENT ATTEMPTED, PT BECAME ALERT AND ATTEMPTED TO PREVENT NGT PLACEMENT. FAMILY THEN STATED THAT PT HAS HISTORY OF SIMILAR REACTIONS TO NARCOTICS. PREVIOUS NORCO GIVEN WITH 2100 MED PASS. NARCAN ADMINISTERED. PT BECAME MORE ALERT, NOW ABLE TO FOLLOW COMANDS AND ANSWER QUESTIONS. PROVIDED FULL NAME AND D.O.B WHEN QUESTIONED.
--- NOTE | 2016-08-10 07:00 | NUR ---
RECEIVED REPORT. ASSUMED CARE OF PATIENT. FAMILY AT BEDSIDE. CALL LIGHT WITHIN REACH. RESTING WITH EYES CLOSED, EASILY AROUSED. NO ACUTE DISTRESS. BOOT TO RIGHT LEG.
[2016-08-10 07:13] LABS: BASOPHILS 0.6 % (0.0-2.0); EOSINOPHILS 1.6 % (0-7); HEMOGLOBIN 10.7 g/dL (13.5-17.5); IMMATURE GRANULOCYTES 1.5 % (0-5); LYMPHOCYTES 10.7 % (15-50); MCH 31.5 pg (26.0-34.0); MCHC 31.8 g/dL (31.0-37.0); MCV 99.1 fL (80.0-100.0); MEAN PLATELET VOLUME 11.1 fL (7.4-10.4); MONOCYTES 8.1 % (2-11); NEUTROPHILS 77.5 % (40-80); PLATELET COUNT 274 10x3/uL (130-400); RDW 15.9 % (11.5-14.5)
[2016-08-10 07:18] VITALS: BP 144/57
[2016-08-10 07:26] VITALS: BP 142/57
[2016-08-10 07:47] LABS: CALC OSMOLALITY 284 mosm/kg (275-300); CALCIUM 8.3 mg/dL (8.5-10.1); CARBON DIOXIDE 27.7 mmol/L (21.0-32.0); CHLORIDE - SERUM 95 mmol/L (98-107); CREATINE KINASE 62 UL (21-232); CREATININE - SERUM 6.4 mg/dL (0.6-1.3); GLUCOSE 249 mg/dL (74-106); POTASSIUM - SERUM 4.3 mmol/L (3.5-5.1); SODIUM 136 mmol/L (136-145); TROPONIN-I < 0.017 ng/mL (0.000-0.060); UREA NITROGEN 27 mg/dL (7-18); eGFR NON AFRICAN AMERICAN 9 mL/min (90-120)
[2016-08-10 07:49] LABS: HEMATOCRIT 33.7 % (42.0-54.0)
--- NOTE | 2016-08-10 07:56 | NUR ---
FOLLOW UP ON LAB WORK. CARDIAC ENZYMES WNL.
[2016-08-10 11:30] VITALS: BP 116/52
--- NOTE | 2016-08-10 11:45 | NUR ---
FSBS 246. 4 UNITS HUMALOG ADMINISTERED AT THIS TIME PER SLIDING SCALE. TYLENOL ADMINISTERED FOR LEG PAIN AT THIS TIME.
--- NOTE | 2016-08-10 13:50 | NUR ---
FSBS 289. 6 UNITS HUMALOG AND 20 UNITS NPH ADMINISTERED ORDERED AT THIS TIME. NO DISTRESS. ALERT/AWAKE, CONSUMING PM MEAL. SON AT BEDSIDE.
--- NOTE | 2016-08-10 14:50 | NUR ---
DRESSING CHANGE PROVIDED TO RIGHT LOWER EXTREMITY AT THIS TIME PER ORDERS. TOLERATED DRESSING CHANGE WELL. NO DISTRESS.
[2016-08-10 15:21] VITALS: BP 136/51
--- NOTE | 2016-08-10 20:22 | NUR ---
PT AGITATED. CONPLAINING OF NUROPATHY PAIN IN LEGS. PT UNABLE TO HAVE NARCOTIC PAIN RELEIVERS DUE TO EARLY AM RAPID REQUIRING NARCAN. PT PROVIDED TYLENOL 1000MG. CURRENT ADMINISTRATION TOTALS 3000MG SINCE APPROX 11AM. PT INFORMED 24HOUR LIMIT 4000MG. PT SITTING IN BEDSIDE CHAIR HITTING RIGHT LEG (ORIF POSTOP) WITH LEFT LEG REPEATEDLY. PT INFORMED THAT HE NEEDS TO STOP BEFORE HE DAMAGES OP SITE.
[2016-08-10 20:30] VITALS: BP 132/54
--- NOTE | 2016-08-10 23:59 | NUR ---
PT LAYING IN BED NO DISTRESS OBSERVED CALL LIGHT IN REACH SRX2 BED LOW AND LOCKED WILL MONITOR
[2016-08-11 00:10] VITALS: BP 129/56
--- NOTE | 2016-08-11 00:36 | NUR ---
PT NOW KICKING POST OP LEG ON BED. PT WARNED AGAIN THAT IF HE DOES NOT STOP HE IS LIKELY TO DO DAMAGE TO HIS ANKLE. PT REFUSED TO STOP KICKING HIS LEG STATING THAT HE COULNT UNTIL HE GOT "A LITTLE SOMETHING".
--- NOTE | 2016-08-11 03:08 | NUR ---
PT LYING IN BED. OPERATIVE LEG HANGING OFF OF SIDE OF BED, BOUNCING LEG IN THE AIR. PT INFORMED AGAIN THAT HE NEEDED TO STOP BEFORE HE DAMAGED HIS ANKLE. PT STATED NO AND CONTINUED.
[2016-08-11 04:20] VITALS: BP 165/65
--- NOTE | 2016-08-11 07:00 | NUR ---
RECEIVED REPORT. ASSUMED CARE OF PATIENT. CALL LIGHT WITHIN REACH. FAMILY AT BEDSIDE. PATIENT ANXIOUS TO LEAVE THIS AM. ALERT/ORIENTED. RESP EVEN AND UNLABORED. NO DISTRESS.
[2016-08-11 07:35] VITALS: BP 146/68
[2016-08-11 07:58] LABS: BASOPHILS 0.6 % (0.0-2.0); EOSINOPHILS 2.3 % (0-7); HEMATOCRIT 33.2 % (42.0-54.0); HEMOGLOBIN 10.5 g/dL (13.5-17.5); IMMATURE GRANULOCYTES 1.4 % (0-5); LYMPHOCYTES 13.7 % (15-50); MCH 30.7 pg (26.0-34.0); MCHC 31.6 g/dL (31.0-37.0); MCV 97.1 fL (80.0-100.0); MEAN PLATELET VOLUME 10.5 fL (7.4-10.4); MONOCYTES 9.6 % (2-11); NEUTROPHILS 72.4 % (40-80); PLATELET COUNT 307 10x3/uL (130-400); RBC 3.42 10x6/uL (4.20-6.10); RDW 15.6 % (11.5-14.5); WBC 14.1 10x3/uL (4.8-10.8)
--- NOTE | 2016-08-11 08:08 | NUR ---
MEDICATED FOR PAIN AT THIS TIME. NO DISTRESS. PATIENT CONTINUES TO EXPERIENCE PAIN TO RIGHT LOWER LEG.
[2016-08-11 08:13] LABS: ANION GAP 21.3 mmol/L (8-16); CALCIUM 8.1 mg/dL (8.5-10.1); POTASSIUM - SERUM 4.3 mmol/L (3.5-5.1); VANCOMYCIN - RANDOM 20.6 ug/mL (10.0-20.0)
[2016-08-11 08:15] LABS: CREATININE - SERUM 8.7 mg/dL (0.6-1.3)
[2016-08-11] MEDS ORDERED: LYRICA150 MG PO (08:26)
--- NOTE | 2016-08-11 08:47 | NUR ---
22 GAUGE IV REMOVED FROM RIGHT WRIST. CATHETER TIP INTACT. PRESSURE HELD TO STOP BLEEDING PT ON ELIQUIS. NO BLEEDING. 2X2 GAUZE APPLIED AND SECURED WITH TAPE. DISCHARGE INSTRUCTIONS GIVEN TO SON AND PATIENT. VERBALIZED UNDERSTANDING OF ALL INSTRUCTIONS GIVEN.
--- NOTE | 2016-08-11 08:54 | NUR ---
REPORT CALLED TO TY PEREZ AT [phone].
--- NOTE | 2016-08-11 09:48 | NUR ---
PATIENT LEFT UNIT VIA WHEELCHAIR WITH FAMILY AND TOWER CRANE OPERATOR FROM [facility] FROM [place]. NO DISTRESS UPON LEAVING UNIT. PATIENT FAMILY TOOK ALL PATIENTS PERSONAL BELONGINGS FROM ROOM UPON DISCHARGE. THANKED THIS CONTROL CLERK AUDITING FOR CARES RECEIVED.
--- NOTE | 2016-08-12 05:44 | DS ---
PATIENT:CHAPARRO KUHN :39 MEDICAL RECORD: [id number] DISCHARGE SUMMARY ADMISSION DATE: 08/04/16 DISCHARGE DATE: 08/11/16 HISTORY OF PRESENT ILLNESS: Mr. Kuhn is a 81-year-old white male with end-stage renal disease, dialyzing 3 times weekly in [place], has been stable with no hospitalizations. Fell and injured his ankle and was admitted to the [facility], where he had continued hemorrhage and infection related to the ankle and upon weightbearing at the [facility] they developed worsening of the wound and the fracture and transferred here to [facility]. HOSPITAL COURSE: The patient was seen by Dr. Lee and he had a compound fracture of his ankle, was taken to surgery where he had internal fixation and screws placed by Dr. Lee. Postoperatively, he did surprisingly well. Vancomycin levels were elevated on transfer from [place] and he did not require further vancomycin in the hospital and his last level here was 27 and we will follow this as an outpatient and dose intermittently. During this time, he underwent acute dialysis without difficulty. Blood sugars were elevated and insulin was advanced, but otherwise he had an uneventful course. DISCHARGE DIAGNOSES: 1. Fracture of right ankle requiring open reduction and internal fixation. 2. End-stage renal disease. 3. Diabetes mellitus. 4. Hypotension, on chronic midodrine therapy. 5. Erythropoietin dependent anemia. PLAN: The patient will be discharged to the [facility] today. He will be in [place] dialysis tomorrow. We will see him on a weekly basis. We will follow his vancomycin levels. He will be dosed intermittently. He is to continue his renal diabetic diet. DISCHARGE MEDICATIONS: Midodrine 5 mg t.i.d., NPH insulin 20 b.i.d., hydrocodone/acetaminophen 5/325 one q. 6 hours p.r.n. He will be on Eliquis 2.5 mg b.i.d., Plavix 75 daily. He will be on Sinemet 25/100 t.i.d., melatonin 3 mg at bedtime, Protonix 40 mg daily, and Renagel ____ t.i.d. TRANSINT:[id number] Voice Confirmation ID: [id number] DOCUMENT ID: [id number] RAQUEL ANDUJAR MD at 0544 CC: [id number] DICTATION DATE: 08/09/16705 PROVIDER NETWORK ANALYST: 08/09/16 0729 DIS IN 08/11/16 [facility] [address] [id number]
== END 2016-08-11 09:55 | DRG 492 ==
LOC: D.M2 00:34
PROVIDERS: Internal Medicine; Internal Medicine Nephrology; Orthopaedic Surgery; ADMIT Internal Medicine Nephrology
PROC: 0QSJ04Z Reposition Right Fibula with Internal Fixation Device, Open Approach (ICD-10-PCS; principal; 2016-08-04 10:45)
PROC: 0LQS0ZZ Repair Right Ankle Tendon, Open Approach (ICD-10-PCS; 2016-08-04 10:45)
DX: S82.891B Other fracture of right lower leg, initial encounter for open fracture type I or II (principal); N18.6 End stage renal disease; I12.0 Hypertensive chronic kidney disease with stage 5 chronic kidney disease or end stage renal disease; W19.XXXA Unspecified fall, initial encounter; E11.22 Type 2 diabetes mellitus with diabetic chronic kidney disease; Z99.2 Dependence on renal dialysis; E11.40 Type 2 diabetes mellitus with diabetic neuropathy, unspecified; E11.319 Type 2 diabetes mellitus with unspecified diabetic retinopathy without macular edema; E83.39 Other disorders of phosphorus metabolism; D63.8 Anemia in other chronic diseases classified elsewhere

== ENCOUNTER → 2016-11-11 19:00 | Outpatient (CLI) | payer MEDICARE, BC ==
[~2016-11-11 19:00] MED LIST changes: +CELEXA20 MG PO; +CLEOCIN HCL150 MG PO; +DURAGESIC1 PATCH .4 TRANSDERM; +ELIQUIS2.5 MG PO; +HUMALOG 30100 UNITS/ SC; +HYDROCODON-ACE1 EAC7 PO; +KLONOPIN0.5 MG PO; +LANTUS SOL100 UNIT/1 SC; +LYRICA150 MG PO; +MIDODRINE HCL5 MG PO; +NEUPRO1 EACH TOPICAL; +NORMODYNE / TR200 MG PO; +NOVOLIN N100 U/ML SQ; +PROTONIX40 MG PO; +RENVELA800 MG PO; +REQUIP0.5 MG PO
== END | disposition home or self-care (01) ==
LOC: D.LABREF 19:00
DX: S82.891A Other fracture of right lower leg, initial encounter for closed fracture (principal)

== ENCOUNTER 2016-11-14 10:03 | Day surgery (SDC) | payer MEDICARE, BC ==
[~2016-11-14] VITALS: Ht 167.6 cm; Wt 95.3 kg
--- NOTE | ~2016-11-14 | OP ---
PATIENT NAME: CHAPARRO BURT MEDICAL RECORD: [id number] :37 LOCATION:D.OPS ADMISSION DATE: SURGEON: MARIE SALINAS MD DATE OF OPERATION: 11/14/2016 Orthopedic Surgery Operative Note PREOPERATIVE DIAGNOSIS: Open wound on the medial aspect of the right ankle, status post open ankle fracture. POSTOPERATIVE DIAGNOSIS: Open wound on the medial aspect of the right ankle, status post open ankle fracture. PROCEDURES: 1. Excisional debridement to include skin, subcutaneous tissue, portions of fat, fascia and muscle. 2. Application of Amniox umbilical cord graft. SURGEON: Marie Salinas MD ANESTHESIA: General. INTRAOPERATIVE COMPLICATIONS: None. SUMMARY OF PATHOLOGIC FINDINGS: The patient's wound looked much better than anticipated; however, it did require at one point scraping down to bone. OPERATIVE SUMMARY IN DETAIL: After obtaining the appropriate preoperative orthopedic surgery consent as well as anesthetic consultation, evaluation and clearance, the patient was brought to the operating room and placed on the operating table in supine position. After general laryngeal mask was administered, the patient's right lower extremity was prepped and draped in a routine sterile fashion. At this point, a combination of scalpel, curettage as well as rongeur were utilized to debride skin and subcutaneous tissue. At one very small area, the bone was scraped back to a bleeding surface with good bleeding tissues, very small undermining was done around the edges of the wound and then an Amniox 4 x 3 graft was cut to measure and sewn in underneath flaps using 3-0 Monocryl. Having completed this, nonstick sterile dressings were applied and a posterior splint was applied. The patient was awakened and taken to the recovery room in stable condition. All final needle and sponge counts were correct. TRANSINT:[id number] Voice Confirmation ID: [id number] DOCUMENT ID: [id number] MARIE SALINAS MD CC: [id number] DICTATION DATE: 11/25/161927 ROUNDING MACHINE TENDER: 11/26/16224 [facility] 11/14/[address] [place] [place] [id number] [place] [id number]
[~2016-11-14 10:03] MED LIST changes: -CLEOCIN HCL150 MG PO; -HUMALOG 30100 UNITS/ SC; -KLONOPIN0.5 MG PO; -NEUPRO1 EACH TOPICAL; -REQUIP0.5 MG PO
[2016-11-14 14:23] LABS: BASOPHILS 0.9 % (0.0-2.0); EOSINOPHILS 4.1 % (0-7); HEMATOCRIT 34.3 % (42.0-54.0); HEMOGLOBIN 10.9 g/dL (13.5-17.5); IMMATURE GRANULOCYTES 1.1 % (0-5); LYMPHOCYTES 28.2 % (15-50); MCH 30.4 pg (26.0-34.0); MCHC 31.8 g/dL (31.0-37.0); MCV 95.8 fL (80.0-100.0); MEAN PLATELET VOLUME 9.7 fL (7.4-10.4); MONOCYTES 8.6 % (2-11); NEUTROPHILS 57.1 % (40-80); RBC 3.58 10x6/uL (4.20-6.10); RDW 16.9 % (11.5-14.5); WBC 9.6 10x3/uL (4.8-10.8)
[2016-11-14 14:27] LABS: PLATELET COUNT 164 10x3/uL (130-400)
[2016-11-14 14:33] LABS: ANION GAP 16.2 mmol/L (8-16); CALCIUM 7.9 mg/dL (8.5-10.1); CREATININE - SERUM 4.8 mg/dL (0.6-1.3); POTASSIUM - SERUM 4.2 mmol/L (3.5-5.1)
[2016-11-14 14:45] LABS: APTT 26.7 SECONDS (22.8-39.4); INR 0.98 (0.85-1.17); PROTIME 12.8 SECONDS (11.6-15.0)
[2016-11-14] MEDS ORDERED: LANTUS INSULIN10 ML SC (15:14)
[2016-11-14] MEDS ORDERED: HUMALOG 30100 UNITS/ SC (15:14)
[2016-11-14 15:29] VITALS: BP 155/69; Ht 167.6 cm; Wt 95.3 kg
[2016-11-14] MEDS ORDERED: CLEOCIN HCL150 MG PO (17:07)
== END 2016-11-14 18:25 | disposition home or self-care (01) ==
LOC: D.OPS 10:03
PROVIDERS: Internal Medicine Nephrology
DX: S91.001A Unspecified open wound, right ankle, initial encounter (principal)

== ENCOUNTER 2016-12-07 17:50 | Inpatient (IN) | payer MEDICARE, BC ==
[~2016-12-07] VITALS: Ht 167.6 cm; Wt 97.2 kg
--- NOTE | ~2016-12-07 | EC ---
PATIENT:CHAPARRO BURT DATE OF SERVICE: 12/07/16 SEX: M MEDICAL RECORD: [id number] DATE OF : 37 LOCATION:D. D.213 AGE OF PATIENT: 81 ADMISSION DATE: 12/07/16 REFERRING PHYSICIAN: INTERPRETING PHYSICIAN: MARNI DE LA ROSA M.D. ECHOCARDIOGRAM REPORT ECHO CHARGES 4 ECHO COMPLETE CLINICAL DIAGNOSIS: SYNCOPE ECHOCARDIOGRAPHIC MEASUREMENTS (adult normal given) AC root (d.<3.7cm) 3.4 LV Septum d (<1.2 cm> 1.5 Valve Excursion 1.9 LV Septum (systole) 2.3 Left Atria (s.<4.0cm> 3.5 LVPW d(<1.2cm) 1.4 RV (d.<2.3cm) 2.8 LVPW (sytole) 2.3 LV diastole(<5.6CM) 6.1 MV E-F(>70mm/sec) LV systole 3.4 LVOT Diameter 2.1 MV exc.(>10mm) Est.ejection fraction (50-75%) Pericardial Effusion N DOPPLER: LVIT A 114 E 129 LA RVSP 25.3 LVOT 128 AOP1/2T Asc. Ao 175 RVOT 132 RA PA 172 AV Gradient Peak 12.3 AV Mean 6.5 AV Area 2.2 MV Gradient Peak 9.8 MV Mean 3.6 MV Area COMMENTS: Smash Hand: Willie VIEYRA Stopper Setter:Elizabeth De La Rosa TAPE# PACS DATE OF SERVICE: 12/09/2016 REFERRING PHYSICIAN: Dr. Sergo Lebron. INDICATION: Syncope. DESCRIPTION: Left ventricle is mildly dilated. Left ventricular hypertrophy is present. Systolic function is normal, estimated ejection fraction is 60%. Mitral valve is structurally normal. There is no regurgitation or prolapse seen. Left atrium is normal in size. The aortic valve is trileaflet. There is ECHOCARDIOGRAM REPORT [id number] CHAPARRO BURT no stenosis or regurgitation seen. Right ventricle is mildly dilated. Tricuspid valve is structurally normal. There is trivial regurgitation seen. Right atrium is normal in size. There is no pericardial effusion noted. IMPRESSION: 1. Left ventricular hypertrophy with preserved ejection fraction of 60%. 2. Trivial tricuspid regurgitation. TRANSINT:[id number] Voice Confirmation ID: [id number] DOCUMENT ID: [id number] MARNI DE LA ROSA M.D. CC: [id number] DICTATION DATE: 12/10/16 0836 FRAME MAKER: 12/10/16 1032 ADM IN [facility] [address] [id number]
[~2016-12-07 17:50] MED LIST changes: +CLEOCIN HCL150 MG PO; +HUMALOG 30100 UNITS/ SC
--- NOTE | 2016-12-07 20:00 | NUR ---
FISTULA ASSESSED. THRILL FELT, BRUIT HEARD.
--- NOTE | 2016-12-07 21:00 | NUR ---
RECEIVED PATIENT VIA STRETCHER. PATIENT ALERT AND ORIENTED X4. DENIES PAIN. SEE ADMISSION ASSESSMENT. PLACED ON HEART MONITOR, VSS.
[2016-12-07 21:15] VITALS: BP 107/50
[2016-12-07 22:00] VITALS: BP 135/61
[2016-12-07 22:00] LABS: BASOPHILS 0.3 % (0-2); EOSINOPHILS 0.8 % (0-7); HEMATOCRIT 26.4 % (42.0-54.0); HEMOGLOBIN 8.3 g/dL (13.5-17.5); IMMATURE GRANULOCYTES 1.2 % (0-5); LYMPHOCYTES 9.3 % (15-50); MCH 31.6 pg (26.0-34.0); MCHC 31.4 g/dL (31.0-37.0); MCV 100.4 fL (80.0-100.0); MEAN PLATELET VOLUME 11.2 fL (7.4-10.4); MONOCYTES 6.8 % (2-11); NEUTROPHILS 81.6 % (40-80); PLATELET COUNT 210 10x3/uL (130-400); RBC 2.63 10x6/uL (4.20-6.10); RDW 18.4 % (11.5-14.5); WBC 14.2 10x3/uL (4.8-10.8)
--- NOTE | 2016-12-07 22:00 | NUR ---
DR RECINOS PAGED WITH CRITICAL LABS-ORDERS RECEIVED.
[2016-12-07 22:06] VITALS: BP 107/50; BMI 34.7
[2016-12-07 22:11] LABS: ALBUMIN 2.7 g/dL (3.4-5.0); BILIRUBIN - TOTAL 0.39 mg/dL (0.2-1.3); CARBON DIOXIDE 28.6 mmol/L (21.0-32.0); CREATININE - SERUM 4.8 mg/dL (0.6-1.3); PROTEIN - SERUM 5.7 g/dL (6.4-8.2)
[2016-12-07 22:13] LABS: ANION GAP 13.7 mmol/L (8-16)
[2016-12-07 22:15] LABS: CALCIUM 6.8 mg/dL (8.5-10.1); POTASSIUM - SERUM 6.3 mmol/L (3.5-5.1)
[2016-12-07 23:00] VITALS: BP 88/54
--- NOTE | 2016-12-07 23:30 | NUR ---
REASSESSMENT COMPLETE, NO ACUTE CHANGES. PATIENT RESTING WELL WITH VSS.
[2016-12-08] VITALS (15 sets, daily range): BP systolic 89–158; BP diastolic 28–71
--- NOTE | 2016-12-08 01:00 | NUR ---
RESTING WITH EYES CLOSED, NO S/S OF DISTRESS. RESPERATIONS EVEN AND NONLABORED.
--- NOTE | 2016-12-08 03:20 | NUR ---
REASSESSMENT COMPLETE PER FLOWSHEET, SEE FOR DETIALS. VSS, WILL MONITOR.
--- NOTE | 2016-12-08 05:10 | NUR ---
PATIENT DENIES NEED AT THIS TIME. VSS. WILL MONITOR.
[2016-12-08 05:29] LABS: BASOPHILS 0.2 % (0-2); EOSINOPHILS 1.4 % (0-7); HEMATOCRIT 26.1 % (42.0-54.0); IMMATURE GRANULOCYTES 1.1 % (0-5); LYMPHOCYTES 15.5 % (15-50); MCH 30.5 pg (26.0-34.0); MCHC 30.7 g/dL (31.0-37.0); MCV 99.6 fL (80.0-100.0); MEAN PLATELET VOLUME 11.1 fL (7.4-10.4); MONOCYTES 9.2 % (2-11); NEUTROPHILS 72.6 % (40-80); PLATELET COUNT 192 10x3/uL (130-400); RBC 2.62 10x6/uL (4.20-6.10); RDW 18.2 % (11.5-14.5); WBC 12.2 10x3/uL (4.8-10.8)
[2016-12-08 05:47] LABS: ANION GAP 12.8 mmol/L (8-16); BILIRUBIN - TOTAL 0.37 mg/dL (0.2-1.3); CALCIUM 7.4 mg/dL (8.5-10.1); CARBON DIOXIDE 31.2 mmol/L (21.0-32.0); CREATININE - SERUM 5.3 mg/dL (0.6-1.3); PROTEIN - SERUM 5.8 g/dL (6.4-8.2)
--- NOTE | 2016-12-08 06:24 | NUR ---
FANILY AT BEDSIDE, UPDATE PROVIDED.
[2016-12-08] MEDS ORDERED: CELEXA20 MG PO (09:39)
[2016-12-08] MEDS ORDERED: LASIX40 MG PO (09:39)
[2016-12-08] MEDS ORDERED: DURAGESIC1 PATCH .4 TRANSDERM (09:40)
[2016-12-08] MEDS ORDERED: NEUPRO1 EACH TOPICAL (09:40)
[2016-12-08] MEDS ORDERED: REQUIP0.5 MG PO (09:41)
--- NOTE | 2016-12-08 09:47 | NUR ---
HD NURSE SETTING UP FOR HD TREATMENT.
--- NOTE | 2016-12-08 10:00 | NUR ---
HD TX PER HD NURSE.
--- NOTE | 2016-12-08 11:28 | NUR ---
2 UNITS PRBC TRANSFUSED PER HD NURSE.
--- NOTE | 2016-12-08 15:26 | NUR ---
ATTEMPTED TO CALL REPORT. NURSE SANA UNAVAILABLE. WILL RETURN CALL.
--- NOTE | 2016-12-08 15:42 | NUR ---
REPORT GIVEN TO NOAH WINTER.
--- NOTE | 2016-12-08 16:26 | NUR ---
PT TRANSFERED TO 2130 VIA BED. MET IN ROOM BY WILL ALL PERSONAL BELONGINGS AND NOAH WINTER. ORIENTED TO ROOM. C/L IN REACH.
--- NOTE | 2016-12-08 16:29 | NUR ---
ARRIVE TO ROOM VIA BED FROM ICU. REPORT FROM MOY SABA. ALERT AND ORIENTED X4. ACCOMPANIED BY SPOUSE. DENIES SOB OR PAIN. DENIES ANY NEEDS. CONTINUE PLAN OF CARE. BED LOCKED AND LOW. CALL LIGHT IN REACH. TWO SIDERAILS UP. RT ANKLE DRESSING CHANGED TODAY BY MOY SABA. DIALYSIS IN ICU BEFORE COMING TO FLOOR.
--- NOTE | 2016-12-08 20:02 | NUR ---
RESUMED CARE OF PT, PT IS ACHS, DRESSING TO R. FOOT, RESERVE-L.ARM, L AVF, FAMILY AT BEDSIDE, CALL LIGHT IN REACH, WILL CONTINUE WITH PLAN OF CARE
--- NOTE | 2016-12-09 00:30 | NUR ---
REAL ESTATE PHOTOGRAPHER AT BEDSIDE FOR VS. NEEDS ADDRESSED, CALL LIGHT IN REACH. WILL CONT TO MONITOR.
--- NOTE | 2016-12-09 02:47 | NUR ---
ASSESSMENT COMPLETE, FAMILY AT BEDSIDE, DENIES ANY NEEDS, CALL LIGHT IN REACH, WILL CONTINUE PLAN OF CARE
[2016-12-09 06:05] VITALS: BP 107/45
[2016-12-09 06:25] LABS: BASOPHILS 0.6 % (0-2); EOSINOPHILS 2.6 % (0-7); HEMATOCRIT 26.4 % (42.0-54.0); HEMOGLOBIN 8.6 g/dL (13.5-17.5); IMMATURE GRANULOCYTES 0.9 % (0-5); MCH 30.3 pg (26.0-34.0); MCHC 32.6 g/dL (31.0-37.0); MEAN PLATELET VOLUME 10.4 fL (7.4-10.4); MONOCYTES 8.6 % (2-11); NEUTROPHILS 71.3 % (40-80); PLATELET COUNT 190 10x3/uL (130-400); RBC 2.84 10x6/uL (4.20-6.10); RDW 21.6 % (11.5-14.5); WBC 12.3 10x3/uL (4.8-10.8)
[2016-12-09 06:35] LABS: ANION GAP 11.5 mmol/L (8-16); CALCIUM 7.4 mg/dL (8.5-10.1); CARBON DIOXIDE 31.7 mmol/L (21.0-32.0); CREATININE - SERUM 4.7 mg/dL (0.6-1.3)
[2016-12-09 06:38] LABS: POTASSIUM - SERUM 4.2 mmol/L (3.5-5.1)
[2016-12-09 08:28] VITALS: BP 108/32
--- NOTE | 2016-12-09 10:23 | NUR ---
DIALYSIS COORDINATOR: PATHWAYS: [facility] Dialysis es//Sat @ 9:30 am. Medical records forwarded to the home unit for their records. EDIN WHITE.
[2016-12-09 12:53] VITALS: Ht 167.6 cm; Wt 97.2 kg
[2016-12-09 13:42] VITALS: BP 114/46
[2016-12-09 16:05] VITALS: BP 121/48
[2016-12-09 23:58] VITALS: BP 120/44
--- NOTE | 2016-12-10 03:54 | NUR ---
RECIEVED PATIENT , SON AT BEDSIDE, SEE ASSESSMENT, CPOF.
[2016-12-10 04:11] VITALS: BP 125/48
[2016-12-10 05:45] LABS: EOSINOPHILS 5.2 % (0-7); HEMATOCRIT 27.7 % (42.0-54.0); HEMOGLOBIN 8.7 g/dL (13.5-17.5); IMMATURE GRANULOCYTES 0.8 % (0-5); LYMPHOCYTES 21.7 % (15-50); MCH 30.1 pg (26.0-34.0); MCHC 31.4 g/dL (31.0-37.0); MEAN PLATELET VOLUME 10.5 fL (7.4-10.4); MONOCYTES 8.7 % (2-11); NEUTROPHILS 62.6 % (40-80); PLATELET COUNT 179 10x3/uL (130-400); RBC 2.89 10x6/uL (4.20-6.10); RDW 20.8 % (11.5-14.5)
[2016-12-10 05:53] LABS: MCV 95.8 fL (80.0-100.0)
[2016-12-10 06:27] LABS: CALCIUM 7.6 mg/dL (8.5-10.1); CARBON DIOXIDE 32.1 mmol/L (21.0-32.0); PHOSPHOROUS 4.8 mg/dL (2.5-4.9); POTASSIUM - SERUM 4.1 mmol/L (3.5-5.1)
[2016-12-10 06:30] LABS: CREATININE - SERUM 6.5 mg/dL (0.6-1.3)
[2016-12-10] MEDS ORDERED: KLONOPIN0.5 MG PO (08:21)
[2016-12-10 09:49] VITALS: BP 118/48
--- NOTE | 2016-12-10 13:59 | NUR ---
RETURN TO ROOM FROM DIALYSIS. ALERT AND ORIENTED X4. INSULIN AND LANTUS PEN GIVEN FOR DISCHARGE. DISCHARGE INSTRUCTIONS GIVEN VERBALLY AND WRITTEN. DISCHARGE PAPERS SIGNED ON CHART. NO IV. ESCORT TO RIDE VIA WHEELCHAIR. REMAINS FREE FROM INJURY.
--- NOTE | 2016-12-10 15:30 | NUR ---
Patient Name: CHAPARRO BURT Admission Status: Elective Accout number: [id number] Admission Date: 12-07-2016 : 1935 Admission Diagnosis:ACUTE POSTHEMORRHAGIC ANEMIA Attending: FRANCINE Current LOS: 3 Anticipated DC Date: 12-10-2016 Planned Disposition: Home Primary Insurance: MEDICARE A & B LATE ENTRY: Discharge Planning Comments: * Is the patient Alert and Oriented? Yes 0 * How many steps to enter\exit or inside your home? RAMP 0 * PCP DR. JIANG IN [place] 0 * Pharmacy [facility] IN [place] 0 * Preadmission Environment Home with Family 0 * ADLs Independent 0 * Equipment Walker Wheelchair 0 * Other Equipment NO MEDICAL EQUIPMENT PROVIDER PREFERENCE 0 * List name and contact numbers for known caregivers / representatives who currently or will assist patient after discharge: IMELDA BURT, SPOUSE, WERNER BURT, SON, 0 * Community resources currently utilized Other 0 * Please name any agencies selected above. [facility], [facility], T/T/S, 1015AM, [facility] 0 * Additional services required to return to the preadmission environment? No 0 * Can the patient safely return to the preadmission environment? Yes 0 * Has this patient been hospitalized within the prior 30 days at any hospital? No 0 CM MET WITH PT'S SON IN ROOM TO DISCUSS DISCHARGE PLANNING AND NEEDS. PT'S SON REPORTS PT LIVING AT HOME INDEPENDENTLY WITH SPOUSE. PT HAS WHEELCHAIR AND WALKER WITH NO MEDICAL EQUIPMENT PROVIDER PREFERENCE. PT GOES TO [facility], T/T/S, 1015, [facility]. PT HAS NO OUTSIDE SERVICES ASSISTING IN THE HOME. CM DISCUSSED AVAILABILITY OF HOME HEALTH, REHAB SERVICES AND MEDICAL EQUIPMENT. PT HAD HOME HEALTH IN THE PAST, FAMILIY DENIES DISCHARGE NEEDS AT THIS TIME; PT'S SON HERE TO PICK PT UP FOR DISCHARGE HOME TODAY. IMPORTANT MESSAGE FROM MEDICARE PROVIDED AND EXPLAINED. Sales Vendor: Yvan Lopez
== END 2016-12-10 13:00 | disposition home or self-care (01) | DRG 811 ==
LOC: D.ICU 17:50 → D.M2 21:31
PROVIDERS: Internal Medicine Nephrology; ADMIT Internal Medicine
PROC: 5A1D60Z (ICD-10-PCS; principal; 2016-12-08)
DX: D62 Acute posthemorrhagic anemia (principal); N18.6 End stage renal disease; I12.0 Hypertensive chronic kidney disease with stage 5 chronic kidney disease or end stage renal disease; E87.5 Hyperkalemia; E11.22 Type 2 diabetes mellitus with diabetic chronic kidney disease; Z99.2 Dependence on renal dialysis; I95.9 Hypotension, unspecified; G20 Parkinson's disease; E11.40 Type 2 diabetes mellitus with diabetic neuropathy, unspecified; E11.319 Type 2 diabetes mellitus with unspecified diabetic retinopathy without macular edema; E83.39 Other disorders of phosphorus metabolism

== ENCOUNTER 2018-04-04 14:35 | Inpatient (IN) | payer MEDICARE, BC ==
[~2018-04-04] VITALS: Ht 167.6 cm; Wt 94.7 kg
[~2018-04-04 14:35] MED LIST changes: +KLONOPIN0.5 MG PO; +NEUPRO1 EACH TOPICAL; +REQUIP0.5 MG PO
[2018-04-04 18:35] VITALS: BP 165/56; Ht 167.6 cm; Wt 94.7 kg
[2018-04-04 19:00] VITALS: BP 116/52
[2018-04-04 19:54] LABS: ANION GAP 19.2 mmol/L (8-16); CARBON DIOXIDE 21.7 mmol/L (21.0-32.0); CREATININE - SERUM 6.4 mg/dL (0.6-1.3); POTASSIUM - SERUM 4.9 mmol/L (3.5-5.1)
[2018-04-04 19:56] LABS: CALCIUM 6.9 mg/dL (8.5-10.1)
[2018-04-04 23:00] VITALS: BP 118/55
[2018-04-05 03:00] VITALS: BP 149/61
[2018-04-05 03:07] LABS: BASOPHILS 0.6 % (0-2); EOSINOPHILS 2.5 % (0-7); HEMATOCRIT 33.5 % (42.0-54.0); HEMOGLOBIN 10.5 g/dL (13.5-17.5); IMMATURE GRANULOCYTES 0.3 % (0-5); LYMPHOCYTES 10.2 % (15-50); MCH 29.3 pg (26.0-34.0); MCHC 31.3 g/dL (31.0-37.0); MCV 93.6 fL (80.0-100.0); MEAN PLATELET VOLUME 9.8 fL (7.4-10.4); MONOCYTES 7.3 % (2-11); NEUTROPHILS 79.1 % (40-80); RBC 3.58 10x6/uL (4.20-6.10); RDW 16.5 % (11.5-14.5); WBC 11.9 10x3/uL (4.8-10.8)
[2018-04-05 03:12] LABS: PLATELET COUNT 235 10x3/uL (130-400)
[2018-04-05 03:25] LABS: ANION GAP 17.9 mmol/L (8-16); CARBON DIOXIDE 23.6 mmol/L (21.0-32.0); POTASSIUM - SERUM 4.5 mmol/L (3.5-5.1)
[2018-04-05 03:27] LABS: CALCIUM 6.9 mg/dL (8.5-10.1)
[2018-04-05 07:00] VITALS: BP 126/59
[2018-04-05] MEDS ORDERED: TRAZODONE HCL50 MG PO (09:40)
[2018-04-05] MEDS ORDERED: REQUIP0.5 MG PO (09:42)
[2018-04-05] MEDS ORDERED: MIDODRINE HCL2.5 MG PO (09:47)
[2018-04-05] MEDS ORDERED: Sinemet 25/100 MG PO (09:48)
[2018-04-05 11:00] VITALS: BP 133/55
[2018-04-05 15:00] VITALS: BP 123/63
== END 2018-04-05 18:31 | disposition home or self-care (01) | DRG 682 ==
LOC: D.ICU 14:35
PROVIDERS: Internal Medicine Nephrology
DX: I12.0 Hypertensive chronic kidney disease with stage 5 chronic kidney disease or end stage renal disease (principal); N18.6 End stage renal disease; E11.22 Type 2 diabetes mellitus with diabetic chronic kidney disease; Z99.2 Dependence on renal dialysis; I73.9 Peripheral vascular disease, unspecified; R19.7 Diarrhea, unspecified; F03.90 Unspecified dementia, unspecified severity, without behavioral disturbance, psychotic disturbance, mood disturbance, and anxiety; R06.02 Shortness of breath